=== PATIENT | female | born 1990 | race African-American/Black ===

== ENCOUNTER → 2016-04-29 19:58 | Observation (INO) ==
[2016-04-29 18:58] LABS: Bilirubin,Urine Negative (Negative); Blood,Urine Negative (Negative); Clarity,Urine Cloudy (Clear); Color,Urine Yellow (Yellow); Glucose,Urine (UA) Normal (Normal); Ketones,Urine Negative (Negative); Leukocyte Esterase,Urine Small (Negative); Nitrite,Urine Negative (Negative); Protein,Urine Negative (Neg-Trace); Specific Gravity,Urine 1.005 (1.010-1.025); Urobilinogen,Urine Normal (Normal)
[2016-04-29 19:01] LABS: Bacteria,Urine Few per hpf (None-Few); Hyaline Casts,Urine None Seen per lpf (None-Few); Squamous Epithelial Cell,Urine Many per lpf (None-Few)
--- NOTE | 2016-04-30 09:41 | OB/GYN Progress Note ---
Date of Encounter: 04/29/16 Time of Encounter: 19:00 - Assessment and Plan (1) 37 weeks gestation of Status: Acute (2) False labor after 37 completed weeks of gestation Status: Acute Patient was seen and evaluated by RN. Sent home with reactive NST and no cervical change. Objective - Vital Signs Vital Signs: Intake and Output 04/29/16 04/30/16 04/30/16 23:59 07:59 15:59 Other: Weight 93.2 kg - Labs Labs: Abnormal lab results Urine Clarity Cloudy (Clear) A 04/29/16 18:47 Ur Specific [place] 1.005 (1.010-1.025) L 04/29/16 18:47 Ur Leukocyte Esterase Small (Negative) H 04/29/16 18:47 Urine Microscopic RBC 3-5 per hpf (0-3) H 04/29/16 18:47 Urine Microscopic WBC 5-15 per hpf (0-3) H 04/29/16 18:47 Ur Squamous Epith Cells Many per lpf (None-Few) H 04/29/16 18:47 Ur Culture Indicated? YES (NO) A 04/29/16 18:47
== END | disposition home or self-care (01) ==
LOC: 1NENULAB
PROVIDERS: ADMIT Obstetrics & Gynecology; ATTEND Obstetrics & Gynecology

== ENCOUNTER 2016-05-14 06:00 | Inpatient (IN) ==
[2016-05-14] MEDS ORDERED: Metoclopramide 10 MG/2 ML VIAL IVP PRN (06:06)
[2016-05-14] MEDS ORDERED: miSOPROStol 25 MCG TABLET VG PRN (06:06)
[2016-05-14] MEDS ORDERED: Famotidine 20 MG/2 ML VIAL IVP PRN (06:06)
[2016-05-14] MEDS ORDERED: D5% in 0.45% NACL 1,000 ML IVC SCH (06:15)
[2016-05-14 06:34] LABS: Basophils % 0.4 %; Eosinophils # 0.1 K/mcL (0.0-0.6); Eosinophils % 0.8 %; Hematocrit 29.6 % (35.3-44.9); Hemoglobin 9.4 g/dL (11.5-15.4); Immature Granulocytes % 1.2 % (0-4); Lymphocytes # 1.9 K/mcL (0.6-4.6); Lymphocytes % 26.1 %; Mean Corpuscular HGB Conc 31.8 g/dL (31.6-35.5); Mean Corpuscular Hemoglobin 25.4 pg (28.0-33.3); Monocytes # 0.5 K/mcL (0.0-1.3); Monocytes % 6.7 %; Neutrophils # 4.7 K/mcL (1.6-8.9); Platelet Count 271 K/mcL (140-400); Red Cell Distribution Width 15.1 % (11.5-14.5); Segmented Neutrophils % 64.8 %
[2016-05-14] MEDS ORDERED: Ringers Solution, Lactated 1,000 ML ONE ×3 (06:42→19:51)
--- NOTE | 2016-05-14 09:25 | OB/GYN History & Physical ---
Date of Encounter: 05/14/16 Time of Encounter: 09:19 Assessment and Plan (1) 39 weeks gestation of Current visit: Yes Status: Acute (2) Elective induction of labor planned Current visit: Yes Status: Acute Cytotec and randhawa bulb clear liquid diet epidural as desired anticipate History of Present Illness Chief complaint: Induction of labor HPI: Ms. Cai is a 25 year old female here for elective IOL 39+1 with current sierra score of 10,Pt with normal with exception of abnormal quad screen with no abnormalities found on follow up. No complaints at this time endorses good movement, and no vaginal bleeding or leaking of fluid. Labs- O+, Rubella immune, GBS and serologies negative except HSV1 positive, HSV2 negative Past Med Surg Social Fam HX - Past Medical History Source: patient Medical history: no medical history, other Psychiatric history: no psych history - Past Surgical History Surgical History: no surgical history - Social History Smoking Status: Never smoker Smokeless Tobacco Status: No Alcohol use: none Drug use: none Current living situation: Home - Independent, With Family - Family History Mother Age: 42 Living Status: Still Living Hx Family Cardiac Disorders: Yes (htn) Hx Family Respiratory Disorders: No Hx Family Cancer: No Hx Family GI Disorders: No Hx Family Genitourinary Disorders: No Hx Family Endocrine Disorder: No Hx Family Musculoskeletal Disorders: No Hx Family Neuromuscular Disorders: No Hx Family Neurologic Disorders: No Hx Family HEENT Disorders: No Hx Family Autoimmune Disorders: No Hx Family Reproductive Disorders: No Hx Family Psychosocial Disorders: No Obstetrical History - Pregnancies : 3 Para: 2 Term: 2 : 0 Ab's: 0 Livin Medications and Allergies Vitamins 1 mg PO DAILY 11/05/15 [History] Ferrous Sulfate 325 mg PO DAILY 05/14/16 [History] Allergies No Known Allergies Allergy (Verified 12/19/15 17:04) Review of System OB All systems PM: reviewed and no additional remarkable complaints except as stated Exam - Vital Signs Vital signs: Initial Vital Signs Temp Pulse Resp BP 98.1 F 121 16 130/74 05/14/16 06:11 05/14/16 06:11 05/14/16 06:11 05/14/16 06:11 - Constitutional Constitutional: well developed, well nourished, no acute distress - Neck Neck exam: full ROM - Cardiovascular Cardiovascular exam: RRR, +S1, +S2 - Abdomen Abdomen: Present: bowel sounds normal, gravid, non tender - Extremities Extremities exam: normal inspection - Vulva Vulva: bilateral: normal - Vagina Vagina: Present: normal moisture - Cervix Dilation: 3 Effacement: 80 Station: -2 - Uterus Uterus exam: Present: normal size - Anus/Rectum Anus/Rectum: Present: normal perianal skin Results Result Diagrams: 05/14/16 06:20 Abnormal lab results RBC 3.70 M/mcL (3.82-4.97) L 05/14/16 06:20 Hgb 9.4 g/dL (11.5-15.4) L 05/14/16 06:20 Hct 29.6 % (35.3-44.9) L 05/14/16 06:20 MCV 80.0 fL (83.0-100.0) L 05/14/16 06:20 MCH 25.4 pg (28.0-33.3) L 05/14/16 06:20 RDW 15.1 % (11.5-14.5) H 05/14/16 06:20 All other labs normal. - VTE Reasons for not Prescribing Prophylaxis: Treatment not Indicated - Low risk for VTE
[2016-05-14] MEDS ORDERED: *HR* Nalbuphine 20 MG/ML AMPUL IVP PRN (10:01)
[2016-05-14] MEDS ORDERED: *HR* Nalbuphine 20 MG/ML AMPUL ONE (10:06)
[2016-05-14] MEDS ORDERED: *HR* FentaNYL (PF) 100 MCG/2 ML VIAL EP ONE (10:10)
[2016-05-14] MEDS ORDERED: EPHEDrine 50 MG/ML VIAL IVP PRN (10:10)
[2016-05-14] MEDS ORDERED: Ringers Solution, Lactated 500 ML IVC ONE (10:10)
[2016-05-14] MEDS ORDERED: *HR* Ropivacaine/PF 0.2% 10 ML AMPUL EP ONE (10:10)
--- NOTE | 2016-05-14 10:13 | Anesthesia Evaluation PreOp ---
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 Other Medical History: Denies Any Significant HX Anesthesia History: No Prior Anesthetic Complications, Past Anesthesia (Epidural ) : Yes Alcohol Use: none Drug use: none Medications and Allergies Vitamins 1 mg PO DAILY 11/05/15 [History] Ferrous Sulfate 325 mg PO DAILY 05/14/16 [History] Allergies No Known Allergies Allergy (Verified 12/19/15 17:04) - Meds/Allergy Pre-op Review Medications Reviewed: Yes Allergies Reviewed: Yes Beta Blockers on Current Med List: No Anesthesia Results - Labs 05/14/16 06:20 Anesthesia Exam Last Vital Signs Temp 98.1 F 05/14/16 06:11 Pulse 121 05/14/16 06:11 Resp 16 05/14/16 06:11 BP 130/74 05/14/16 06:11 Height: 1.7m Weight: 93kg Pain Scale: 4 Pain Scale Used: Numeric (1 - 10) - HEENT Pupil (Motor): Pupils equal Mallampati: I Teeth: Normal Oral Opening: Greater than 3 - CAR RENTAL SERVICE ATTENDANT LOC: Oriented CAR RENTAL SERVICE ATTENDANT Motor: Normal RUE, Normal LUE, Normal RLE, Normal LLE, Normal Face CAR RENTAL SERVICE ATTENDANT Sensory: Normal: RUE, LUE, RLE, LLE, Face - Cardiac Rhythm: Regular Murmur: None JVD: No Carotid Bruit: No - Pulmonary Breath Sounds: bilateral Clear Respiratory Effort: Symmetrical Anesthesia Assess/Plan ASA Score: 2 Modified Raoul Scale for Level of Consciousness: Cooperative, oriented, and tranquil Anesthetic Plan: Regional Autologous Blood: Yes Monitoring Plan: Standard Monitors Recovery Plan: Other
[2016-05-14] MEDS ORDERED: Epidural Premix (fent/bupiv) 110 ML EP SCH (10:15)
--- NOTE | 2016-05-14 13:02 | OB Labor Progress Note ---
Date of Encounter: 05/14/16 Time of Encounter: 13:00 Labor Progress Note - Subjective Subjective: Patient resting in bed. Patient breathing through contractions. Discussed POC with patient. Patient denies any questions or concerns. - Cervix Cervix: 5.5/80/-2 - Heart Tones Heart Tones: 120 bpm moderate variability +15x15 accels no decels noted. CAt. 1 tracing. - [place]: 2-4 min apart - Interventions Interventions: SVE, AROM moderate amount of clear fluid. - Plan Plan: Continue labor management. Patient ready for Epidural will notify anesthesia for placement.
[2016-05-14] MEDS ORDERED: *HR* Ropivacaine/PF 0.2% 10 ML AMPUL ONE ×2 (13:09→16:37)
[2016-05-14] MEDS ORDERED: Epidural Premix (fent/bupiv) 110 ML EP ONE ×2 (13:09→20:05)
[2016-05-14] MEDS ORDERED: *HR* FentaNYL (PF) 100 MCG/2 ML VIAL ONE ×3 (13:09→19:13)
[2016-05-14] MEDS ORDERED: Oxytocin 20 units/ LR 1000 mL 20 UNIT/1,000 ML BAG IVC ONE (13:13)
--- NOTE | 2016-05-14 13:33 | Anesthesia Procedures ---
Date of Encounter: 05/14/16 Time of Encounter: 13:14 Procedures: Anesthesia - Epidural/Spinal Patient ID/Chart reviewed: Yes Patient examined: Yes OB Eval: Gestational age: 39.1 OB Eval: : 3 OB Eval: Hx Para: 2 OB Eval: Contractions: Non-stressed pattern Consent Obtained: Yes Supplemental Oxygen: None/Room Air Site Prep: Aseptic Technique, Sterile prep and drape, 0.5% Chlorhexidine/Alcohol Patient position: upright Local Anesthetic: Lidocaine 1% Amount of Local Anesthetic used: 2.5 Touhy Needle Gauge: 18 Touhy Needle Depth (cm): 7 Catheter Depth at Skin (cm): 13 Test Dose (1.5% Lido + Epi): Volume given (mls): 5 Test Dose Result: Negative Loading Dose: Fentanyl (mcg): 100 Loading Dose: Other: Ropivacaine 0.2% 10mL Loading Dose Administered: Thru Catheter Infusion Med: 0.125% Bupivacaine w/ 2 mcg/ml Fentanyl Infusion Rate (mls/hr): 15 (Bolus 4mL q15min; Max 3/hr) Catheter Secured in Place: Tegaderm, Tape Interspace Used: L2-L3 Loss of Resistance (MARIPOSA): Yes Blood: No CSF: No Paresthesia: No Procedure: x1 attempt. Patient tolerated well. Vitals + FHT's: VSS throughout procedure. FHR stable. See nursing documentation.
[2016-05-14] MEDS ORDERED: Oxytocin 20 units/ LR 1000 mL 20 UNIT/1,000 ML BAG IVC SCH (14:45)
--- NOTE | 2016-05-14 15:25 | OB Labor Progress Note ---
Date of Encounter: 05/14/16 Time of Encounter: 15:21 Labor Progress Note - Subjective Subjective: Patient resting comfortably with epidural in place. Patient denies any pain. - Cervix Cervix: 5.5/70/-2 - Heart Tones Heart Tones: 125 bpm moderate variability +15x15 accels no decels noted Cat 1 tracing - [place]: 2-3 min apart - Interventions Interventions: SVE, IUPC placed without difficulty. Patient tolerated well - Plan Plan: Continue labor management. Increase pitocin per protocol.
[2016-05-14] MEDS ORDERED: ROPIVACAINE HCL/PF 0.5% 30 ML VIAL ONE (19:13)
--- NOTE | 2016-05-14 20:18 | Anesthesia Procedures ---
Date of Encounter: 05/14/16 Time of Encounter: 19:53 Procedures: Anesthesia - Epidural/Spinal Patient ID/Chart reviewed: Yes Patient examined: Yes OB Eval: Contractions: Non-stressed pattern Consent Obtained: Yes Supplemental Oxygen: None/Room Air Site Prep: Aseptic Technique, Sterile prep and drape, 0.5% Chlorhexidine/Alcohol Patient position: upright Local Anesthetic: Lidocaine 1% Amount of Local Anesthetic used: 2.5 Touhy Needle Gauge: 18 Touhy Needle Depth (cm): 7 Catheter Depth at Skin (cm): 13 Test Dose (1.5% Lido + Epi): Volume given (mls): 5 Test Dose Result: Negative Loading Dose: Other: Ropivacaine 0.5% 8mL Loading Dose Administered: Thru Catheter Infusion Med: 0.125% Bupivacaine w/ 2 mcg/ml Fentanyl Infusion Rate (mls/hr): 15 (Bolus 4ml q15min; Max 3/hr) Catheter Secured in Place: Tegaderm, Tape Interspace Used: L4-L5 Loss of Resistance (MARIPOSA): Yes Blood: No CSF: No Paresthesia: No Procedure: Patient with continued 10/10 contraction pain despite bolus at 1915 of Ropivacaine and 100mcg Fentanyl. Discussed with patient and decision made to replace epidural. Old epidural catheter removed with tip intact. Catheter x1 attempt. Patient tolerated well and had decrease in pain from 10/10 to 1/10 after 10 minutes. Will continue monitoring patient. Vitals + FHT's: VSS and FHR stable throughout procedure. See nursing documentation.
--- NOTE | 2016-05-14 20:21 | Anesthesia Progress Note ---
Date of Encounter: 05/14/16 Time of Encounter: 19:15 Anesthesia Note - Note Note: 05/14/16 20:19 Patient with 10/10 lower abdominal/back pain. Epidural bolus of Ropivacaine and 100mcg fentanyl (total volume 9mL). Will monitor patient.
--- NOTE | 2016-05-14 23:44 | OB/GYN Procedure Note ---
Delivery - Delivery Date: 05/14/16 Provider: Mike English ([facility]) Intrapartum events: none Delivery induction: AROM, oxytocin, misoprostol Delivery monitor: external FHT, external uterine, internal uterine Anesthesia: epidural Estimated Blood Loss: 100 - Infant (s) Infant A Delivery Date: 05/14/16 Delivery Time: 23:19 Presentation: vertex Position: TOLU Route of delivery: Gender: Female Viability: Viable Pounds: 8 Ounces: 5 Weight Gram: 3765 kg at 1 minute: 8 at 5 mins: 9 Shoulder Dystocia: not encountered Shoulder Dystocia Maneuvers: González maneuver Placenta: spontaneous - Repair Episiotomy: none Laceration Description: None - Complications Delivery complications: none Delivery comments: Pt complete and began maternal bearing down efforts to of liveborn girl. Vertex delivered followed by shoulders after maternal repositioning into González positioning. placed on maternal abdomen for stimulation to vigorous cry. Cord cut after pulsations ceased, Placenta delivered spontaneously (scott) and pitocin started per policy. Fundus firm EBL 100. perineum intact. Mother and stable in recovery. Dr. English present for entire procedure. - Disposition Mom disposition: stable in LDR disposition: stable in LDR
[2016-05-15] MEDS ORDERED: Acetaminophen 325 MG TABLET PO PRN (02:44)
[2016-05-15] MEDS ORDERED: Benzocaine/Menthol 56 GM AEROSOL SPRAY TP PRN (02:44)
[2016-05-15] MEDS ORDERED: Oxytocin 20 units/ LR 1000 mL 20 UNIT/1,000 ML BAG IVC ONE (02:44)
[2016-05-15] MEDS ORDERED: Oxytocin 20 units/ LR 1000 mL 20 UNIT/1,000 ML BAG IV SCH (02:44)
[2016-05-15] MEDS ORDERED: Lanolin 28 GM TUBE TP PRN (02:44)
--- NOTE | 2016-05-15 08:21 | OB/GYN Progress Note ---
Date of Encounter: 05/15/16 Time of Encounter: 08:19 - Assessment and Plan (1) Status post vaginal delivery Current Visit: Yes Status: Acute Continue routine care discharge home tomorrow (2) Breast feeding status of mother Current Visit: Yes Status: Acute support prn Subjective - Subjective Principal diagnosis: day 1 Interval history: Patient in bed breast feeding female . Patient denies any questions to concerns. Patient reports cramping and requesting Motrin. Nurse notified. Plan to discharge home tomorrow. Patient reports: appetite normal, voiding normally, pain well controlled, ambulating normally : doing well, nursing well Objective - Latest Vital Signs Latest vital signs: Vital Signs Temp Pulse Resp BP Pulse Ox 05/15/16 08:14 98 F 108 16 130/62 97 05/15/16 04:10 98.6 F 84 18 128/65 97 05/15/16 04:00 98.6 F 84 18 128/65 97 05/15/16 02:50 98.8 F 100 16 115/70 97 05/15/16 01:50 98.5 F 84 16 147/77 Intake and Output 05/14/16 05/15/16 05/15/16 23:59 07:59 15:59 Intake Total 600 / 600 Output Total 400 / 400 1000 / 1000 900 / 900 Balance -400 / -400 -1000 / -1000 -300 / -300 Intake: Oral 600 / 600 Output: Urine 1000 / 1000 900 / 900 Catheter 400 / 400 Other: Stool Characteristics Normal for Patient Weight 89.584 kg Patient Weight 05/15/16 23:59 Weight 89.584 kg - Exam Lungs: bilateral: normal Chest: Normal S1, Normal S2 Extremities: Present: normal Abdomen: Present: normal appearance, soft Uterus: Present: normal, firm Uterus Position: 2 Fingers Below Umbilicus, Midline
[2016-05-15] MEDS: Ibuprofen 600 MG TABLET PO PRN ×2 (08:34→18:45)
[2016-05-15] MEDS: Prenatal Vit/FA 1 EACH TABLET PO SCH (08:34)
[2016-05-16 08:22] VITALS: BP 101/59
[2016-05-16] MEDS: Prenatal Vit/FA 1 EACH TABLET PO SCH (08:25)
--- NOTE | 2016-05-16 09:30 | Discharge Summary ---
Date of Encounter: 05/16/16 Time of Encounter: 09:28 - Discharge Diagnosis (1) Status post vaginal delivery Priority: Primary Status: Acute Comments: Continue routine care discharge home today follow up with Dr. English in 4-6 weeks (2) Breast feeding status of mother Priority: Secondary Status: Acute Comments: Continue support prn - Discharge Medications Prescriptions: Ibuprofen [Motrin] 600 mg PO Q6HR PRN #60 tablet PRN Reason: Cramping Home Medications: Vitamins 1 mg PO DAILY 11/05/15 [History] Ibuprofen [Motrin] 600 mg PO Q6HR PRN #60 tablet 05/16/16 [Rx] Vit/FA 1 each PO DAILY tablet 05/16/16 [Rx] Allergies/Adverse Reactions: Allergies No Known Allergies Allergy (Verified 12/19/15 17:04) Data Procedures and tests throughout hospitalization: Laboratory Tests 05/14/16 06:20 WBC 7.3 RBC 3.70 L Hgb 9.4 L Hct 29.6 L MCV 80.0 L MCH 25.4 L MCHC 31.8 RDW 15.1 H Plt Count 271 MPV 10.0 Immature Gran % 1.2 Seg Neutrophils % 64.8 Lymphocytes % 26.1 Monocytes % 6.7 Eosinophils % 0.8 Basophils % 0.4 Neutrophils # 4.7 Lymphocytes # 1.9 Monocytes # 0.5 Eosinophils # 0.1 Basophils # 0.0 Date of admission: 05/14/16 06:02 Primary care physician: Clifford Fortune MD Consults: 05/15/16 02:44 Consult to Refractory Bricklayer [CONS] Routine Comment: Vaginal delivery, consult needed Discharging clinician: Elinor Perez Anticipated date of discharge: 05/16/16 - Patient Status Disposition: Home, Self-Care Condition: Good Functional capacity at discharge: independent ambulation - Discharge Instructions Follow Up With: Clifford Fortune MD [Primary Care Provider] - Mike English DO [Partnered Physician] - - Diet and Activity Activity: increase activity as tolerated Diet: regular diet Hospital Course Reason for admission: induction of labor Delivery: Episiotomy: none Other procedures: none complications: none Discharge diagnosis: IUP at term delivered baby: female (breast feeding) Time Attestation: Total time spent providing and/or coordinating discharge services: Time Spent: Less than 30 minutes Exam - Constitutional Vitals: Temp Pulse Resp BP Pulse Ox 98.1 F 87 16 101/59 98 05/16/16 07:30 05/16/16 07:30 05/16/16 07:30 05/16/16 07:30 05/15/16 21:00 General appearance IM: A&O X 3, pleasant, answers questions appropriately - Respiratory Respiratory exam: Present: CTAB - Cardiovascular Cardiovascular exam IM: Present: RRR, +S1, +S2 - GI/Abdominal GI/Abdominal exam IM: normal bowel sounds - Uterine Tone: Firm Uterus Position: 2 Fingers Below Umbilicus, Midline - Extremities Exam Extremities exam IM: Present: full ROM, normal capillary refill, normal inspection - Neurological Exam Neurological exam: alert, oriented X3, reflexes normal
== END 2016-05-16 11:00 | disposition home or self-care (01) | DRG 560 ==
LOC: 1NENULAB 06:02 → 1NENUOBS 05-15 02:39

== ENCOUNTER → 2019-01-31 15:53 | Observation (INO) | END | disposition home or self-care (01) | LOC: 1NENULAB | PROVIDERS: ADMIT Advanced Practice Midwife; ATTEND Advanced Practice Midwife ==

== ENCOUNTER 2019-02-11 06:00 | Inpatient (IN) ==
[2019-02-11] MEDS ORDERED: Metoclopramide 10 MG/2 ML VIAL IVP PRN (06:03)
[2019-02-11] MEDS ORDERED: Naloxone 0.4 MG/ML INJ IVP PRN (06:03)
[2019-02-11] MEDS ORDERED: Famotidine 20 MG/2 ML VIAL IVP PRN (06:03)
[2019-02-11] MEDS ORDERED: Lidocaine 1% 20 ML MDV INFILT PRN (06:03)
[2019-02-11] MEDS ORDERED: *HR* Nalbuphine 10 MG/ML AMPUL IVP PRN (06:03)
[2019-02-11] MEDS ORDERED: miSOPROStoL 25 MCG TABLET PO PRN (06:05)
[2019-02-11] MEDS ORDERED: Ringers Solution, Lactated 1,000 ML IVC SCH (06:15)
[2019-02-11 06:34] LABS: Basophils % 0.2 %; Eosinophils # 0.1 K/mcL (0.0-0.6); Hematocrit 36.2 % (35.3-44.9); Hemoglobin 12.5 g/dL (11.5-15.4); Immature Granulocytes % 0.6 % (0-4); Lymphocytes # 2.5 K/mcL (0.6-4.6); Lymphocytes % 30.5 %; Mean Corpuscular HGB Conc 34.5 g/dL (31.6-35.5); Mean Corpuscular Hemoglobin 29.1 pg (28.0-33.3); Mean Corpuscular Volume 84.4 fL (83.0-100.0); Mean Platelet Volume 10.6 fL (9.4-12.4); Monocytes # 0.4 K/mcL (0.0-1.3); Monocytes % 5.1 %; Neutrophils # 5.1 K/mcL (1.6-8.9); Platelet Count 233 K/mcL (140-400); Red Blood Count 4.29 M/mcL (3.82-4.97); Red Cell Distribution Width 14.6 % (11.5-14.5); Segmented Neutrophils % 62.6 %; White Blood Count 8.2 K/mcL (4.3-11.1)
[2019-02-11 09:28] LABS: Amphetamine Screen,Urine Negative ng/mL (Cutoff=1000); Barbiturate Screen,Urine Negative ng/mL (Cutoff=200); Benzodiazepines Screen,Urine Negative ng/mL (Cutoff=200); Cannabinoid Screen,Urine Negative ng/mL (Cutoff = 50); Cocaine Screen,Urine Negative ng/mL (Cutoff= 300); Opiate Screen,Urine Negative ng/mL (Cutoff=300); Phencyclidine Screen,Urine Negative ng/mL (Cutoff=25)
[2019-02-11] MEDS ORDERED: Bupivacaine-MPF 0.25% 10 ML VIAL ONE (11:25)
[2019-02-11] MEDS ORDERED: *HR* FentaNYL (PF) 100 MCG/2 ML VIAL ONE (11:25)
[2019-02-11] MEDS ORDERED: Epidural Premix (fent/bupiv) 110 ML EP ONE (11:30)
[2019-02-11] MEDS ORDERED: Oxytocin 20 units/ LR 1000 mL 20 UNIT/1,000 ML BAG IVC ONE (12:10)
[2019-02-11] MEDS ORDERED: Epidural Premix (fent/bupiv) 110 ML EP SCH (12:15)
[2019-02-11] MEDS ORDERED: Oxytocin 20 units/ LR 1000 mL 20 UNIT/1,000 ML BAG IVC SCH ×2 (12:15→18:44)
[2019-02-11] MEDS ORDERED: Rho Immune Globulin 1,500 UNIT SYRINGE IM PRN (18:44)
[2019-02-11] MEDS ORDERED: Ibuprofen 600 MG TABLET PO PRN (18:44)
[2019-02-11] MEDS ORDERED: Acetaminophen 325 MG TABLET PO PRN (18:44)
[2019-02-11] MEDS ORDERED: Measles/Mumps/Rubella Vacc 0.5 ML VIAL SQ PRN (18:44)
[2019-02-12] MEDS ORDERED: Ringers Solution, Lactated 1,000 ML ONE (05:35)
[2019-02-12 08:05] LABS: Basophils % 0.2 %; Eosinophils # 0.1 K/mcL (0.0-0.6); Eosinophils % 0.6 %; Hemoglobin 12.1 g/dL (11.5-15.4); Immature Granulocytes % 0.5 % (0-4); Lymphocytes # 2.2 K/mcL (0.6-4.6); Lymphocytes % 20.3 %; Mean Corpuscular HGB Conc 33.6 g/dL (31.6-35.5); Mean Corpuscular Hemoglobin 29.4 pg (28.0-33.3); Mean Corpuscular Volume 87.6 fL (83.0-100.0); Mean Platelet Volume 10.5 fL (9.4-12.4); Monocytes # 0.6 K/mcL (0.0-1.3); Monocytes % 5.7 %; Neutrophils # 7.8 K/mcL (1.6-8.9); Platelet Count 182 K/mcL (140-400); Red Blood Count 4.11 M/mcL (3.82-4.97); Red Cell Distribution Width 14.6 % (11.5-14.5); Segmented Neutrophils % 72.7 %; White Blood Count 10.8 K/mcL (4.3-11.1)
[2019-02-12] MEDS: Prenatal Vit/FA 1 EACH TABLET PO SCH (08:27)
[2019-02-12] MEDS ORDERED: PRENATAL VITAMINS PO SCH (09:00)
[2019-02-12] MEDS ORDERED: *HR* FentaNYL (PF) 100 MCG/2 ML VIAL ONE (12:40)
[2019-02-12] MEDS ORDERED: *HR* Propofol 200 MG/20 ML VIAL IVP ONE ×2 (12:40→13:39)
[2019-02-12] MEDS ORDERED: Lidocaine -MPF 2% 2 ML VIAL ONE (12:40)
[2019-02-12] MEDS ORDERED: *HR* Midazolam HCl 2 MG/2 ML VIAL ONE (12:40)
[2019-02-12] MEDS ORDERED: ceFAZolin 2,000 MG in Water for inj. (sterile) 20 ML IVP ONE (12:43)
[2019-02-12] MEDS ORDERED: Ondansetron 4 MG/2 ML VIAL ONE ×2 (12:45→14:25)
[2019-02-12] MEDS ORDERED: Dexamethasone 4 MG/ML VIAL ONE (12:46)
[2019-02-12] MEDS ORDERED: Bupivacaine/EPI 1:200k 0.5%PF 10 ML VIAL ONE (13:25)
[2019-02-12] MEDS ORDERED: Acetaminophen IV 1,000 MG/100 ML INFUS..BTL ONE (14:07)
[2019-02-12] MEDS ORDERED: Famotidine 20 MG/2 ML VIAL ONE (14:08)
[2019-02-12] MEDS ORDERED: *HR* Succinylcholine 200 MG/10 ML VIAL IVP ONE (14:33)
[2019-02-12] MEDS ORDERED: *HR* OxyCODONE Immed Rel 5 MG TABLET PO PRN (14:42)
[2019-02-12] MEDS ORDERED: *HR* Promethazine 25 MG/ML VIAL IVP PRN (14:42)
[2019-02-12] MEDS ORDERED: *HR* HYDROmorphone 2 MG TABLET PO PRN (14:42)
[2019-02-12] MEDS ORDERED: *HR* Labetalol 20 MG/4 ML SYRINGE IVP PRN (14:42)
[2019-02-12] MEDS ORDERED: *HR* HYDROmorphone (PF) 1 MG/ML SYRINGE IVP PRN (14:42)
[2019-02-12] MEDS: *HR* HYDROcodone/Acet 5/325 mg TABLET PO PRN ×2 (15:59→20:45)
[2019-02-13 07:19] VITALS: BP 128/83
[2019-02-13] MEDS: *HR* HYDROcodone/Acet 5/325 mg TABLET PO PRN (07:49)
[2019-02-13] MEDS: Prenatal Vit/FA 1 EACH TABLET PO SCH (07:50)
== END 2019-02-13 11:25 | disposition home or self-care (01) | DRG 541 ==
LOC: 1NENULAB 06:01 → 1NENUOBS 20:01
PROVIDERS: ADMIT Student in an Organized Health Care Education/Training Program; ATTEND Student in an Organized Health Care Education/Training Program